=== PATIENT | male | born 1995 | race Caucasian/White ===

== ENCOUNTER 2016-11-16 16:53 | Emergency (ER) | payer SELFPAY ==
[~2016-11-16] VITALS: Ht 188 cm; Wt 75.0 kg
[2016-11-16 16:54] VITALS: BP 134/79; PULSE 97; RESP 14; TEMP 97.3; O2SAT 97
--- NOTE | 2016-11-16 19:31 | PD ---
HPI Chief Complaint: Chest Pain Time Seen by Provider: 19:28 Travel History International Travel<30 days: No Contact w/Intl Traveler<30days: No Traveled to known affect area: No History of Present Illness HPI 18-year-old male presents to the ED for evaluation in 1 week history of left ear pain, sinus congestion, clear rhinorrhea, sore throat, nonproductive cough and subjective fevers. Gradual onset, ear pain was initial symptom. Patient denies nausea or vomiting. He denies posttussive emesis. He denies history of environmental allergies. He states that he just moved here from [place]. He endorses many sick contacts. Current smoker. Denies chronic health problems. Takes no daily medications. NKDA. PFSH Social History Tobacco Use: Yes Allergies-Medications (Allergen,Severity, Reaction): Coded Allergies: No Known Allergies (Unverified , 11/16/16) Reported Meds & Prescriptions Reported Meds & Active Scripts Active Fluticasone Nasal Josephine 50 Mcg/Act Naspr 50 Mcg EACH NARE BID 50 mcg/spray Loratadine 10 Mg Tab 10 Mg PO DAILY 14 Days Amoxicillin 500 Mg Tab 500 Mg PO BID 7 Days Review of Systems Except as stated in HPI: all other systems reviewed are Neg Physical Exam Narrative GENERAL: Well-nourished, well-developed white male in no acute distress. SKIN: Warm and dry. HEAD: Normocephalic. Atraumatic. EYES: No scleral icterus. No injection or drainage. PERRLA. EOMI. ENT: Left tympanic membrane mildly erythematous and dull. No loss of landmarks. Right tympanic membrane partially obscured by cerumen. The visualized portion of the membrane is pearly velásquez. Nasal mucosa is moist. Mild posterior oropharyngeal erythema and cobblestoning. Oropharynx without edema or exudate. Right tonsil 1+. Uvula midline. Airway patent. NECK: Supple, trachea midline. No JVD or lymphadenopathy. CARDIOVASCULAR: Regular rate and rhythm without murmurs, gallops, or rubs. 2+ DP and radial pulses bilaterally. RESPIRATORY: Breath sounds clear and equal bilaterally. No accessory muscle use. GASTROINTESTINAL: Abdomen soft, non-tender, nondistended. + Bowel sounds MUSCULOSKELETAL: No cyanosis, or edema. Patient is ambulatory and moves extremities spontaneously. BACK: Nontender without obvious deformity. No CVA tenderness. Data Data Last Documented VS Vital Signs Date Time Temp Pulse Resp B/P Pulse Ox O2 Delivery O2 Flow Rate FiO2 11/16/16 16:54 97.3 97 14 134/79 97 Room Air Orders Influenzae A/B Antigen (11/16/16 19:26) Group A Rapid Strep Screen (11/16/16 19:26) Chest, Single Ap (11/16/16 ) Strep Culture (Group A) (11/16/16 19:45) Amoxicillin (Trimox) (11/16/16 20:30) MDM Medical Decision Making Medical Screen Exam Complete: Yes Emergency Medical Condition: Yes Differential Diagnosis Otitis media versus viral syndrome versus environmental allergies versus group A strep versus influenza versus other Narrative Course 18-year-old male presents to the ED for evaluation in 1 week history of left ear pain, sinus congestion, clear rhinorrhea, sore throat, nonproductive cough and subjective fevers. Gradual onset, ear pain was initial symptom. Patient denies nausea or vomiting. He denies posttussive emesis. He denies history of environmental allergies. He states that he just moved here from [place]. Vitals reviewed. Physical exam reveals a nontoxic-appearing white male in no acute distress. Left tympanic membrane is mildly erythematous and dull without loss of landmarks. Right tympanic membrane partially obscured by cerumen, visualized portion pearly and velásquez. Nasal mucosa moist, moderately inflamed. There is mild posterior oropharyngeal erythema and cobblestoning. Oropharynx is otherwise without edema, exudate. Right tonsils 1+ uvula midline. Airway patent. Chest clear to auscultation bilaterally. Abdomen soft, nontender. CXR: no infiltrates by my read. STREP swab: negative INFULENZA :negative This is allergic rhinitis and otitis media. Patient was prescribed amoxicillin 500 mg twice a day 7 days. First dose administered in the ED. He is also prescribed a course of loratadine and fluticasone nasal spray. He is instructed to take loratadine daily, use nasal spray one puff in each nostril daily. Cautioned to quit smoking NOW. Patient was instructed to follow up with primary care provider. He indicated understanding of instructions, is amenable to plan of care. He stable and discharged home. Diagnosis Primary Impression: Allergic rhinitis Qualified Code: J30.2 - Seasonal allergic rhinitis, unspecified allergic rhinitis trigger Additional Impression: Right otitis media Qualified Code: H66.91 - Right otitis media, unspecified chronicity, unspecified otitis media type Referrals: Primary Care Physician Patient Instructions: Allergic Rhinitis (ED), General Instructions Additional Instructions: Rest, hydrate. Avoid known allergens. Consider using a Neti pot, available over the counter, twice a month to clean the nasal passages. Use nasal spray one puff in each nostril daily. 10 mg loratadine daily. Amoxicillin 500 mg twice a day x 7 days. TAKE ALL ANTIBIOTICS PRESCRIBED, EVEN IF SYMPTOMS RESOLVE. Follow-up with your primary care provider. Return to the ED for any urgent or emergent medical condition. Med/Other Pt SpecificInfo: Prescription(s) given Scripts Fluticasone Nasal Josephine 50 Mcg/Act Naspr50 Mcg EACH NARE BID #1 BOTTLE Ref 0 50 mcg/spray Prov:Arielle Turcios MD 11/16/16 Loratadine 10 Mg Tab10 Mg PO DAILY 14 Days Ref 0 Prov:Arielle Turcios MD 11/16/16 Amoxicillin 500 Mg [id number] Mg PO BID 7 Days Ref 0 Prov:Arielle Turcios MD 11/16/16 Disposition: 01 DISCHARGE HOME Condition: Stable Evette Ley Nov 16, 2016 19:31
[2016-11-16] MEDS ORDERED: FLUT50SP EACH NARE (20:19)
[2016-11-16] MEDS ORDERED: AMOX500T PO (20:19)
[2016-11-16] MEDS ORDERED: LORA10TA PO (20:19)
[2016-11-16] MEDS ORDERED: AMOXICILLIN (TRIHYDRATE) 500 MG CAP PO ONE (20:30)
--- NOTE | 2016-11-16 20:38 | RADRPT ---
EXAM DATE/TIME: 11/16/2016 19:57 [facility] COMPARISON: No previous studies available for comparison. INDICATIONS : Cough. MEDICAL HISTORY : None. SURGICAL HISTORY : None. ENCOUNTER: Initial ACUITY: 2 days PAIN SCORE: 0/10 LOCATION: Bilateral chest FINDINGS: A single view of the chest demonstrates the lungs to be symmetrically aerated without evidence of mas s, infiltrate or effusion. The cardiomediastinal contours are unremarkable. Osseous structures are intact. CONCLUSION: No acute disease. Jesse Martinez MD on November 16, 2016 at 20:36 Board Certified Radiologist. This report was verified electronically.
== END 2016-11-16 20:30 | disposition home or self-care (01) ==
LOC: NETRI 16:53
DX: J30.2 Other seasonal allergic rhinitis (principal); H66.91 Otitis media, unspecified, right ear
CPT/HCPCS: 71010; 87081; 87804; 87880; 99283